=== PATIENT | male | born 2000 | race Caucasian/White ===

== ENCOUNTER 2024-06-05 03:42 | Observation (INO) ==
[2024-06-05 04:21] LABS: Appearance Urine Clear (Clear); Bilirubin Urine Negative (Negative); Blood Urine Negative (Negative); Color Urine Yellow; Glucose Urine UA Negative (Negative); Ketones Urine Negative (Negative); Leukocyte Esterase Urine Negative (Negative); Nitrite Urine Negative (Negative); Protein Urine Negative (Negative); Specific Gravity Urine 1.022 (1.000-1.030); Urobilinogen Urine Negative (Negative); pH Urine 7.5 (4.5-7.5)
[2024-06-05 04:22] LABS: Basophils # (auto) 0.08 K/uL (0.00-0.20); Basophils % (auto) 0.6 %; Eosinophils # (auto) 0.02 K/uL (0.00-0.50); Eosinophils % (auto) 0.1 %; Hematocrit (blood only) 48.5 % (42.0-52.0); Hemoglobin 17.2 g/dl (14.0-18.0); Immature Granulocytes # (auto) 0.14 K/uL (0.01-0.20); Lymphocytes # (auto) 2.57 K/uL (1.20-3.40); Lymphocytes % (auto) 18.6 %; Mean Corpuscular Hemoglobin 30.1 pg (25.0-34.0); Mean Corpuscular Hgb Conc 35.5 g/dL (32.0-36.0); Mean Corpuscular Volume 84.9 fL (80.0-100.0); Mean Platelet Volume 9.3 fL (9.4-12.4); Monocytes # (auto) 1.38 K/uL (0.11-0.59); Neutrophils # (auto) 9.61 K/uL (1.40-6.50); Neutrophils % (auto) 69.7 %; Platelet Count 282 K/uL (130-400); RDW Coefficient of Variation 12.1 % (11.5-14.5); RDW Standard Deviation 36.6 fL (36.4-46.3); Red Blood Count 5.71 M/uL (4.70-6.10)
[2024-06-05 04:39] LABS: Albumin Globulin Ratio 1.9 (0.9-2); Albumin Level 4.9 gm/dl (3.4-5.0); BUN Creatinine Ratio 16.9 (10-20); Bilirubin,Total 0.5 mg/dl (0.2-1.0); Calcium 9.7 mg/dl (8.6-10.3); Creatinine Clr Calc Pharmacy 155.2 ml/min; Globulin 2.6 gm/dl (2.5-4.0); Potassium 3.8 mmol/L (3.5-5.1); Total Protein 7.5 gm/dl (6.0-8.3)
[2024-06-05 04:47] LABS: Acetaminophen < 3 ug/ml (10-30); Salicylate < 3.0 mg/dl (3.0-30)
[2024-06-05 04:48] LABS: Amphetamines+Metham, Urine Neg (Neg); Barbiturates, Urine Neg (Neg); Benzodiazepine, Urine Neg (Neg); Cocaine, Urine Neg (Neg); Fentanyl, Urine Neg (Neg); MDMA (Ecstacy), Urine Neg (Neg); Marijuana, Urine Pos (Neg); Methadone, Urine Neg (Neg); Opiate, Urine Neg (Neg); Phencyclidine, Urine Neg (Neg)
[2024-06-05 04:54] LABS: Thyroid Stimulating Hormone 2.059 uIu/ml (0.300-4.500)
--- NOTE | 2024-06-05 05:18 | Emergency Department Note ---
Impression & Plan Acute psychosis, COVID Admit to the hospitalist ED Provider Note NAME: HARPER CHOUDHURY AGE: 24 SEX: Male INFORMANT: [facility] police and the patient ED PROVIDER(S): Natividad Cohn DO CHIEF COMPLAINT: Delusional PLAN: Disposition: Admit to the hospitalist with psychiatric consult MEDICAL DECISION MAKING: This is a 24-year-old male patient with a history of schizophrenia who presents to the emergency department with [facility] police after being found at the HUB in a delusional state. Patient explains that someone stole his Risperdone and therefore has not been taking it. Police explain that they found him making ropes out of toilet paper and spraying toilet bowl venetian blind cleaner about the HUB. Patient explained to me that he was preparing a chemical reaction to make the strongest plastic in the world to build a tree that would take him to [place]. According to police, the patient had showed up yesterday at their department asking if they explore his car because it had been "bugged"while he was at home in [place]. He describes driving at speeds greater than 120 miles an hour to get back to [facility] so they could check the car. Police petitioned a 302. Laboratory studies reveal a mild leukocytosis with a white count of 13.8. H&H were stable. Glucose level was 110. Urinalysis was negative. COVID testing was positive. Urine drug screen was positive for marijuana. Alcohol, aspirin and Tylenol testing were all negative. It seems that the patient is making unsafe decisions not based on reality. I do not think he is able to safely care for himself. I will sign off on the involuntary commitment. Because the patient is COVID-positive, he will require medical admission at this time with psychiatric consultation. Care/management discussed with: [facility] police and ED psychiatric case work aide Triage Nursing notes: reviewed and agree with them. Vital Signs: reviewed and remarkable for tachycardia Additional History obtained from: [facility] police Chronic Medical/Social Conditions affecting care: Schizophrenia Differential Diagnosis: Medication noncompliance, mood disorder, thought disorder, drug abuse HPI: 24 year old Male arrives for evaluation of delusional thoughts. Patient was found at the HUB exhibiting bizarre behavior as described in the MDM. PAST MEDICAL HISTORY: See Below, SOCIAL HISTORY: Student at [facility] [employer], HOME MEDICATIONS: See list ALLERGIES: See list VITALS: See Below PHYSICAL EXAMINATION: HEENT: Head - normocephalic and atraumatic. 2 vertical black dots on the forehead. Pupils are equal, round, and reactive to light. Extraocular eye muscles are intact, and sclera are anicteric. Nose - moist nasal mucosa without discharge. Mouth - moist buccal mucosa. Oropharynx is nonerythematous and there is no tonsillar exudate or edema noted. Neck: Supple; no cervical lymphadenopathy Heart: Regular rate and rhythm. There is a normal S1 and S2 with no murmurs, clicks, or gallops appreciated. Lungs: Clear to auscultation bilaterally with no wheezes, rales, or rhonchi. Abdomen: Soft, completely nontender, nondistended, with good bowel sounds. There are no palpable pulsatile masses or hepatosplenomegaly. There is no guarding, rigidity, or rebound noted. Extremities: No evidence of cyanosis, clubbing, or edema. There are easily palpable peripheral pulses. Skin: warm and dry with good turgor and no rashes. Psych: Patient is delusional on my evaluation. He appears to be having conversations at times with internal stimuli. He seems paranoid Emergency department course: The patient was evaluated in room A-3. A complete history and physical was performed. Laboratory studies were drawn as above. I reviewed the 302 petition and signed off on the commitment. Patient described feeling anxious and requested something to help him relax. He was given a dose of Ativan and a nicotine patch. The patient is COVID-positive. I discussed the case with the hospitalist and they will evaluate for further inpatient care. Past Med/Surg History Problem List (Updated 06/05/24 @ 10:13 by Natividad Cohn DO) COVID (Acute) Acute psychosis (Acute) COVID-19 Schizophrenia Paranoid delusion (Acute) Penile skin bridge Medical History History of COVID-19 03/2022 (home test)- mild symptoms > resolved History of asthma Childhood, no current inhaler Surgical History Hx of tonsillectomy Hx of wisdom tooth extraction Family History Father Hypertension Grandfather (Maternal) Hypertension Denies family history of Ovarian cancer Prostate cancer Myocardial infarction Breast cancer Colorectal cancer Social History Smoking Status: Never smoker Tobacco Type: E-cigarettes / Vaping Second Hand Exposure: Yes; Do You Dip or Chew Tobacco: No (Hx nicotine pouches- advised); Hx Alcohol Use: Yes (occasional use) Hx Substance Use: Yes Last Used Substance Other:: 06/2023 Preferred Language: [place] Communication Ability: Effective Visual Impairment: Limited Hearing Ability: Normal Chemical Technician Required: No Beliefs That Will Affect Care: None marital status: Single Current Living Situation: Other Current Living Situation Comment: 2 roommates-oneyda current occupational status: student How many Children do You have: 0 Feels Safe at Home: Yes Childhood Exposure to Second-Hand Smoke: Yes caffeine: No Dental Care, Regularly: Yes Physical Activity Frequency: 1-2 Times per Week Seatbelt Use: always Sunscreen Use: No Gender Identity: Male Assistive Devices: Glasses Allergies Allergies Allergy/AdvReac Type Severity Reaction Status Date / Time codeine Allergy Intermediate Facial Verified 11/30/23 14:45 swelling with redness Home Meds Home Medications Medication Instructions Recorded Confirmed cholecalciferol (vitamin D3) 50 100 mcg PO DAILY 10/21/23 06/05/24 mcg (2,000 unit) capsule (Vitamin D3) multivitamin 1 tab PO DAILY 10/21/23 06/05/24 omega-3 fatty acids 1 cap PO DAILY 10/21/23 06/05/24 risperidone 3 mg tablet 3 mg PO BID 06/05/24 06/05/24 Results & Data (ED) Vital Signs Vital Signs - 24 hr 06/05/24 03:45 06/05/24 06:25 Temperature 37.1 C Temperature Source Temporal Artery Scan Pulse Rate 110 H Pulse Rate [Finger] 79 Respiratory Rate 17 18 Respiratory Effort / Characteristics Non-Labored Spontaneous Respiratory Depth Normal Normal Respiratory Pattern Regular Blood Pressure 142/96 H Blood Pressure [Left Arm] 110/71 Blood Pressure Mean 111 Blood Pressure Mean [Left Arm] 84 Pulse Oximetry 95 99 Oxygen Delivery Method Room Air Room Air Sepsis Recent Fever Within 48 Hours No Sepsis New/Unexplained Change in Mental Status No Sepsis Action Taken by Nursing No Action Required Laboratory Data 06/05/24 04:00 06/05/24 04:00 Lab Results 06/05/24 06/05/24 06/05/24 Range/Units 03:56 03:59 04:00 WBC 13.80 H (4.8-10.8) K/ul RBC 5.71 (4.70-6.10) M/uL Hgb 17.2 (14.0-18.0) g/dl Hct 48.5 (42.0-52.0) % MCV 84.9 (80.0-100.0) fL MCH 30.1 (25.0-34.0) pg MCHC 35.5 (32.0-36.0) g/dL RDW Std Deviation 36.6 (36.4-46.3) fL RDW Coeff of Cris 12.1 (11.5-14.5) % Plt Count 282 (130-400) K/uL MPV 9.3 L (9.4-12.4) fL Immature Gran % (Auto) 1.0 % Neut % (Auto) 69.7 % Lymph % (Auto) 18.6 % [place] % (Auto) 10.0 % Eos % (Auto) 0.1 % Baso % (Auto) 0.6 % Neut # (Auto) 9.61 H (1.40-6.50) K/uL Lymph # (Auto) 2.57 (1.20-3.40) K/uL [place] # (Auto) 1.38 H (0.11-0.59) K/uL Eos # (Auto) 0.02 (0.00-0.50) K/uL Baso # (Auto) 0.08 (0.00-0.20) K/uL Immature Gran # (Auto) 0.14 (0.01-0.20) K/uL Sodium 141 (136-145) mmol/L Potassium 3.8 (3.5-5.1) mmol/L Chloride 106 (98-107) mmol/L Carbon Dioxide 24 (21-32) mmol/L Anion Gap 11 (3-11) BUN 14 (6-23) mg/dl Creatinine 0.83 (0.6-1.4) mg/dl Est Cr Clr Drug Dosing 155.2 ml/min eGFR 126.12 BUN/Creatinine Ratio 16.9 (10-20) Glucose 110 H (70-99(Fasting)) mg/dl Calcium 9.7 (8.6-10.3) mg/dl Total Bilirubin 0.5 (0.2-1.0) mg/dl AST 38 (13-39) U/L ALT 52 (7-52) U/L Alkaline Phosphatase 51 (34-104) U/L Total Protein 7.5 (6.0-8.3) gm/dl Albumin 4.9 (3.4-5.0) gm/dl Globulin 2.6 (2.5-4.0) gm/dl Albumin/Globulin Ratio 1.9 (0.9-2) TSH 2.059 (0.300-4.500) uIu/ml Urine Color Yellow Urine Appearance Clear (Clear) Urine pH 7.5 (4.5-7.5) Ur Specific [place] 1.022 (1.000-1.030) Urine Protein Negative (Negative) Urine Glucose (UA) Negative (Negative) Urine Ketones Negative (Negative) Urine Blood Negative (Negative) Urine Nitrite Negative (Negative) Urine Bilirubin Negative (Negative) Urine Urobilinogen Negative (Negative) Ur Leukocyte Esterase Negative (Negative) Salicylates < 3.0 L (3.0-30) mg/dl Urine Opiates Screen Neg (Neg) Ur Methadone, Qual Neg (Neg) Urine Fentanyl Screen Neg (Neg) Acetaminophen < 3 L (10-30) ug/ml Urine Barbiturates Neg (Neg) Ur Phencyclidine (PCP) Neg (Neg) U Amphetamin/Meth Scrn Neg (Neg) MDMA (Ecstasy) Screen Neg (Neg) U Benzodiazepines Scrn Neg (Neg) Ur Cocaine Metabolite Neg (Neg) U Marijuana (THC) Screen Pos H (Neg) Ethyl Alcohol mg/dL < 10.0 (<10.0) mg/dl SARS-CoV-2, RNA, NAAT POSITIVE A (NEGATIVE) Administered Medications Nicotine (Nicotine 14 Mg/24 Hr Patch) 1 patch TD QAM SHARIFA Stop: 07/05/24 08:59 Last Admin: 06/05/24 08:09 Dose: 1 patch Documented By: AVM Discontinued Medications Lorazepam (Lorazepam 1 Mg Tab) 2 mg PO NOW STA Stop: 06/05/24 05:23 Last Admin: 06/05/24 05:25 Dose: 2 mg Documented By: [email or web address] Discharge Plan Visit Data Chief Complaint: Mental Health Evaluation Stated Complaint: 302 PAPERWORK ED Provider: Natividad Cohn Discharge Problem: Acute psychosis, COVID Patient Disposition: Admitted As Inpatient Discharge Instructions Interventions: ED Discharge Assessment Last Done: 06/05/24 09:10
[2024-06-05] MEDS: LORazepam 1 MG TAB PO STA (05:25)
--- NOTE | 2024-06-05 07:33 | History & Physical Report ---
Date of Service June 05, 2024 Assessment & Plan (1) Paranoid delusion: Plan: With acute psychosis. Psychiatry will be consulted Medical management deferred to psychiatry-will hold home Ridperdal for now Ordered to be on a one-to-one and is not allowed to leave the facility. He is on a 302 warrant (2) Schizophrenia: Plan: Medication management as per psychiatry (3) COVID-19: Plan: He is with very mild symptoms of chills, cough, dry throat, mild nausea; vital signs are normal, unclear when symptoms started-sometime in the last week since he was discharged from the [facility]. Low risk for severe disease-No treatment needed Will monitor Keep on isolation as per hospital policy add on ibuprofen as needed for pain or headache, fever. Pt actually requested "salicylate aspirin" but I advised ibuprofen prn (4) History of asthma: Plan: History of childhood asthma, no current symptoms, no wheezing, no hypoxemia Monitor with having active COVID-19 No need for CXR Plan DVT prophylaxis-Lovenox SQ given ongoing COVID-19 Disposition-admit to medical/surgical unit on a one-to-one, COVID isolation room History of Present Illness Chief Complaint: Psychosis Primary Care Provider: Willam Khan DO This patient is a 24-year-old male with history of paranoid schizophrenia, nicotine dependence, and marijuana use disorder who presents to the ER in the custody of the police with psychosis. He is a student at [employer] and drove home to his parents' house yesterday, thought they bugged his car, drove it at excessive speeds back to [place] to the police station where he asked him to inspect his car for listening devices. He then went to the [employer] building on campus and stole all of the toilet paper from the environmental services employees and was creating a rope and then was found splashing toilet bowl cleaner industrial all over the floor. He thought he was going to "climb a tree to [place]," apparently. He also recently superglued charcoal to his forehead because he wanted to feel burning in his eyes as if he were in a gas chamber. He does focus a lot on water and food being tainted with fungus and chemicals, yet laughs when I remind him that smoking is very bad for his health. He was just discharged from the [facility] about a week ago and says he was placed on Risperdal, but wants to talk about reducing the dose to half. He denies SI/HI, but does report feeling depressed and says "I feel the depression in my body." In the ER, he was found to be COVID-19 positive, with fairly normal vital signs. He had a mild leukocytosis of 13. He was not hypoxemic and reports he had some chills at home and a mild cough, some mild nausea but no vomiting, but otherwise feels fine. He requested Ativan and nicotine in the ER which was given to him. He was placed on a 302 warrant by the ER physician and will be admitted to the medical service due to being COVID-19 positive. I discussed his care with the psychiatric nurse liaison prior to admission. Allergies Allergy/AdvReac Type Severity Reaction Status Date / Time codeine Allergy Intermediate Facial Verified 11/30/23 14:45 swelling with redness Home Medications Medication Instructions Recorded Confirmed Type cholecalciferol (vitamin D3) 50 100 mcg PO DAILY 10/21/23 06/05/24 History mcg (2,000 unit) capsule (Vitamin D3) multivitamin 1 tab PO DAILY 10/21/23 06/05/24 History omega-3 fatty acids 1 cap PO DAILY 10/21/23 06/05/24 History risperidone 3 mg tablet 3 mg PO BID 06/05/24 06/05/24 History Past Med/Surg History Problem List (Updated 06/05/24 @ 10:13 by Natividad Cohn DO) COVID (Acute) Acute psychosis (Acute) COVID-19 Schizophrenia Paranoid delusion (Acute) Penile skin bridge Medical History History of COVID-19 03/2022 (home test)- mild symptoms > resolved History of asthma Childhood, no current inhaler Surgical History Hx of tonsillectomy Hx of wisdom tooth extraction Family History Father Hypertension Grandfather (Maternal) Hypertension Denies family history of Ovarian cancer Prostate cancer Myocardial infarction Breast cancer Colorectal cancer Social History Smoking Status: Current every day smoker Tobacco Type: E-cigarettes / Vaping Second Hand Exposure: Yes; Do You Dip or Chew Tobacco: No (Hx nicotine pouches- advised); Hx Alcohol Use: Yes Hx Substance Use: No (denied) Preferred Language: [place] Citizen Communication Ability: Effective Visual Impairment: Limited Hearing Ability: Normal Testing Manager Required: No Beliefs That Will Affect Care: None marital status: Single Current Living Situation: Other Current Living Situation Comment: 2 roommates-oneyda current occupational status: student How many Children do You have: 0 Feels Safe at Home: Yes Childhood Exposure to Second-Hand Smoke: Yes caffeine: No Dental Care, Regularly: Yes Physical Activity Frequency: 1-2 Times per Week Seatbelt Use: always Sunscreen Use: No Gender Identity: Male Assistive Devices: Glasses Review of Systems Review of Systems: All systems reviewed & are unremarkable except as noted in HPI & below Physical Exam Constitutional: WD/WN, vitals as above Eyes: PERRL, conjunctivae normal, anicteric sclerae ENMT: external ear and nose normal, oropharynx normal Respiratory: normal respiratory effort, lungs clear to auscultation Cardiovascular: RRR, no murmur, no edema Gastrointestinal (Abdomen): normal bowel sounds, soft, nontender, no hepatosplenomegaly Musculoskeletal: no cyanosis or clubbing, extremities motor strength 5/5 Neurologic: PERRL, EOMI, accommodation nl, no face palsy, no dysarthria moves all extremities and awake; no focal motor deficits Psychiatric: Orientation: alert, oriented to person, oriented to place and cooperative; not guarded Affect: + depressed affect Mood: + depressed mood Thought Process: + looseness of associations; + thought process not goal directed Thought Content: + preoccupation and + delusions Suicidal Thoughts: denies suicidal thoughts Homicidal Thoughts: denies homicidal thoughts Estimated Intelligence: + above average estimated intelligence Results & Data Results & Data Vital Signs (Past 12 Hours) Vital Signs Temp Pulse Pulse Resp BP BP Pulse Ox 06/05/24 06:25 79 18 110/71 99 06/05/24 03:45 37.1 C 110 H 17 142/96 H 95 O2 Del Method 06/05/24 06:25 Room Air 06/05/24 03:45 Room Air Laboratory Results CBC, CMP, TSH, urinalysis, ASA, APAP, urine drug screen, alcohol level, and COVID-19 test reviewed Code Status & VTE Plan Code Status Full code VTE Prophylaxis Plan VTE Prophylaxis will be ordered: Yes PG Care Time/CCT Total # of Minutes Spent Total Time Spent with Patient: Total time spent is greater than 50% in coordination of care (as documented) at patient's floor/unit and/or counseling patient: Coding Level of Care Code 04363 INT INP/OBS CARE MIN Diagnoses Paranoid delusion F22 Schizophrenia F20.9 COVID-19 U07.1 History of asthma Z87.09
[2024-06-05] MEDS: NICOTINE 14 MG/24 HR PATCH TD SCH (08:09)
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
[2024-06-05] MEDS ORDERED: ACETAMINOPHEN 325 MG TAB PO PRN (09:56)
[2024-06-05] MEDS ORDERED: ONDANSETRON INJ 2 MG/ML 2 ML VIAL IV PRN (09:56)
[2024-06-05] MEDS ORDERED: MAGNESIUM HYDROXIDE SUSP 30 ML UDC PO PRN (09:56)
[2024-06-05] MEDS ORDERED: POLYETHYLENE (MIRALAX) 17 GM PACK PO PRN (09:56)
[2024-06-05] MEDS: ENOXAPARIN INJ 40 MG/0.4 ML SYR SQ SCH (10:03)
[2024-06-05] MEDS: NON-FORMULARY MEDICATION (Cholecalciferol (Vitamin D3) [Vitamin D3] 50 mcg (2,000 unit) Ca PO SCH (10:03)
[2024-06-05] MEDS: NON-FORMULARY MEDICATION (Multivitamin Tablet) PO SCH (10:03)
[2024-06-05] MEDS ORDERED: IBUPROFEN 600 MG TAB PO PRN (11:27)
[2024-06-05] MEDS ORDERED: OLANZapine ZYDIS 5 MG ORALLY DIS. TAB PO PRN (13:18)
[2024-06-05] MEDS ORDERED: LORazepam 1 MG TAB PO PRN (13:18)
[2024-06-05] MEDS ORDERED: OLANZapine 10 MG/2.1 ML SDV IM PRN (13:18)
[2024-06-05] MEDS: LORazepam 1 MG TAB PO SCH (21:06)
[2024-06-05] MEDS: ARIPiprazole 10 MG TAB PO SCH (21:07)
[2024-06-06] MEDS: NICOTINE POLACRILEX 2 MG GUM MT PRN (03:21)
[2024-06-06] MEDS: CHOLECALCIFEROL 25 MCG (1000 UNITS) TAB PO SCH (08:26)
[2024-06-06] MEDS: MULTIVITAMIN TAB PO SCH (08:26)
[2024-06-06] MEDS: NICOTINE 7 MG/24 HR TDSY TD SCH (08:26)
--- NOTE | 2024-06-06 11:24 | Hospitalist Progress Note ---
Date of Service June 06, 2024 Assessment & Plan (1) Severe manic bipolar 1 disorder with psychotic behavior: Plan: Previous diagnosis of paranoid schizophrenia is now thought to be bipolar disorder type I with psychotic behavior as per psychiatry Presented here with acute psychosis Appreciate psychiatry consultation-started on Abilify-titrating up as necessary Olanzapine p.o./IM as needed Psychiatry managing/coordinating his length of stay-on a 302 warrant and not allowed to leave the facility. A hearing for 303 is scheduled for Friday 06/08 (2) Paranoid delusion: Plan: With acute psychosis. Psychiatry consult appreciated with management as above- improving on Abilify Ordered to be on a one-to-one and is not allowed to leave the facility. He is on a 302 warrant (3) COVID-19: Plan: He is with very mild symptoms of chills, cough, dry throat, mild nausea; vital signs are normal, unclear when symptoms started-sometime in the last week since he was discharged from the [facility]. Low risk for severe disease-No treatment needed Will monitor-has mild cough Keep on isolation as per hospital policy Continue ibuprofen as needed for pain or headache, fever. Pt actually requested "salicylate aspirin" but I advised ibuprofen prn (4) History of asthma: Plan: History of childhood asthma, no current symptoms, no wheezing, no hypoxemia Monitor with having active COVID-19 No need for CXR Plan DVT prophylaxis-Lovenox SQ given ongoing COVID-19 Disposition-continued stay medical/surgical unit on a one-to-one, COVID isolation room until either stable for discharge to home as per psychiatry or when okay with hospital infection control to be removed from COVID isolation- typically 7-day stay. Admission and Anticipated Discharge Date Admission Date: June 05, 2024 Subjective Patient was on the phone with behavioral health when I went in to see him. As per nursing, he is much improved today and his thoughts are more clear. He has a mild cough and no other concerns. Physical Exam Constitutional: WD/WN, vitals as above Respiratory: normal respiratory effort; no cough Neurologic: Normal gait Results & Data Results & Data Vital Signs (Past 12 Hours) Vital Signs Pulse Resp BP Pulse Ox O2 Del Method 06/06/24 08:35 Room Air 06/06/24 06:57 80 18 123/73 97 Room Air PG Care Time/CCT Total # of Minutes Spent Total Time Spent with Patient: Total time spent is greater than 50% in coordination of care (as documented) at patient's floor/unit and/or counseling patient: Coding Level of Care Code 90066 SUB INP/OBS CARE 08/25MIN Diagnoses Severe manic bipolar 1 disorder with psychotic behavior F31.2 Paranoid delusion F22 COVID-19 U07.1 History of asthma Z87.09
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
[2024-06-06] MEDS: ARIPiprazole 15 MG TAB PO SCH (20:06)
[2024-06-07] MEDS: ALUMINUM/MAGNESIUM SUSP 30 ML UDC PO PRN (11:12)
[2024-06-07 12:22] LABS: Marijuana Quant, GCMS Urine 263 ng/mL (<5)
--- NOTE | 2024-06-07 13:59 | Hospitalist Progress Note ---
Date of Service June 07, 2024 Assessment & Plan (1) Severe manic bipolar 1 disorder with psychotic behavior: Plan: Appreciate psychiatry consultation-started on Abilify-titrating up as necessary Olanzapine p.o./IM as needed Psychiatry managing/coordinating his length of stay-on a 302 warrant and not allowed to leave the facility. A hearing for 303 is scheduled for Friday 06/08 (2) Paranoid delusion: Plan: Psychiatry consult appreciated with management as above-improving on Abilify Ordered to be on a one-to-one and is not allowed to leave the facility. He is on a 302 warrant (3) COVID-19: Plan: Keep on isolation as per hospital policy Continue ibuprofen as needed for pain or headache, fever. (4) History of asthma: Plan: no current symptoms, no wheezing, no hypoxemia Monitor with having active COVID-19 Plan DVT prophylaxis-Lovenox SQ given ongoing COVID-19 Disposition-continued stay medical/surgical unit on a one-to-one, COVID isolation room until either stable for discharge to home as per psychiatry or when okay with hospital infection control to be removed from COVID isolation- typically 7-day stay. Admission and Anticipated Discharge Date Admission Date: June 05, 2024 Subjective Pt appears calm and in a pleasant mood. He states he slept well and there were no issues overnight. Review of Systems Review of Systems: CONST: Negative for fever, body aches and chills. HENT: Negative for neck pain/stiffness, headache, congestion, sore throat, swelling. EYES: Negative for discharge/pain or vision changes. RESP: Negative for cough/hemoptysis and shortness of breath. CV: Negative chest pain, difficulty breathing, palpitations. ABD: Negative pain, nausea, vomiting. : Negative increase frequency, dysuria, blood in urine or stool. MUSC: Negative for muscle aches, edema. SKIN: Negative rash, lesions/sores. NEURO: Negative headache, dizziness, weakness. Physical Exam Physical Exam: GENERAL APPEARANCE NAD, activity normal for age, well developed/ well nourished, no cyanosis, pallor, or diaphoresis. EYES lids/conjunctiva normal. EARS/NOSE/THROAT Mucous membranes moist, nares normal, lips/teeth normal uvula midline without oral pharyngeal erythema, exudate or swelling TMs normal bilaterally. No lymphangitis/lymphedema. HEAD/NECK normocephalic atraumatic, no facial trauma, neck is supple. RESPIRATORY respiratory effort normal, speaks in full sentences, no tripod position, no accessory muscle use. Lungs clear to auscultation without rhonchi, wheezes, rales CARDIAC Regular rate and rhythm, no edema. ABDOMINAL Soft, ND/NT. No evidence of fluid wave. No pulsatile masses on exam, rebound tenderness, Braden sign or pain over Mcburney's point. MUSCLES/EXTREMITIES No abnormal range of motion, no swelling. SKIN Warm, pink and dry. No rashes, dermatoses, petechiae or lesions. NEUROLOGICAL Speech is clear and appropriate. Normal level of consciousness. G ait and coordination are normal. 5/5 strength in all extremities. PSYCH Normal mood and affect. Judgement/competence is appropriate Results & Data Results & Data Vital Signs (Past 12 Hours) Vital Signs Temp Pulse Resp BP Pulse Ox O2 Del Method 06/07/24 07:09 37.1 C 73 18 118/80 98 Room Air PG Care Time/CCT Total # of Minutes Spent Total Time Spent with Patient: Total time spent is greater than 50% in coordination of care (as documented) at patient's floor/unit and/or counseling patient: Coding Level of Care Code 12270 SUB INP/OBS CARE 2/35MIN Diagnoses Severe manic bipolar 1 disorder with psychotic behavior F31.2 Paranoid delusion F22 COVID-19 U07.1 History of asthma Z87.09
--- NOTE | 2024-06-07 16:20 | Psychiatric Progress Note ---
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 Patient is COVID-positive. Psychiatry consulted for evaluation and management. Presentation concerning for Bipolar 1 Ruthie with psychosis vs Schizoaffective disorder, bipolar type vs substance induced psychosis, cannabis abuse. Presenting symptoms include decreased need for sleep, grandiosity, elevated mood, inc goal directed activity, high energy, delusions of grandeur, persecutory delusions, bizarre beliefs, paranoia. Appears to be his second episode, first in 2022. Likely triggered by traumas (GF in train accident, maternal grandmother). Possible family h/o Bipolar disorder in maternal grandfather. A: Today presents more stable mood and slightly improved insight. Continues to have decreased need for sleep, grandiosity, and poor insight into his recent activities and risk of harm to himself and others. Presenting disorientation, inappropriate laughter, and tangentiality on mental status. Would benefit from continued involuntary hospitalization for stabilization. Overall, I spent a total of 40 minutes with this case including review of chart records, nursing report, review of lab work, direct evaluation of the patient at bedside, counseling the patient, discussion of the patient with the hospitalist provider, discussion with the psychiatric liaison during clinical rounds, orders and documentation in the electronic health record. (1) Unspecified mood [affective] disorder: (2) Acute psychosis: (3) Ruthie: (4) Paranoid delusion: (5) Persecutory delusion: (6) Cannabis abuse: (7) of family member: (8) COVID-19: (9) History of asthma: Plan - Currently on 302 involuntary commitment Filed for 303 commitment Continue bedside sitter given involuntary status Continue elopement precautions - No personal phone/sharps in room 06/07/2024: Continue aripiprazole to 15 mg at bedtime. Continue lorazepam 2 mg at bedtime. Labs: Vit D, Vit B12, HgbA1C, Fasting lipids 06/06/2024: Increase aripiprazole to 15 mg at bedtime. Continue lorazepam 2 mg at bedtime. 06/05/2024: -Abilify 10mg HS -Lorazepam 2mg HS -Lorazepam 1mg Q6H PRN for anxiety -Olanzapine 5mg ODT/IM Q6H PRN for agitation Interval History Identifying Information Marquis is a 24-year-old male, domiciled with roommates, [employer] [facility] [employer] [facility] student history of past psychiatric hospitalization who presents with acute ruthie and psychosis. Patient is COVID-positive. Psychiatry consulted for evaluation and management. Chief Complaint "Psychotic when sick" Subjective Subjective Patient was seen & assessed and interval progress reviewed with treatment team nursing and social work Patient reports sleeping well. He said he woke up with something stuck to his back. Says that the stickers now on his door. Looks to be a random sticker possibly from old food container label. He says that it was a nicotine patch. Reports fair energy. Denies any muscle rigidity or paralysis. He denies feelings of restlessness. Reports plans to go home and get back to school work. Reports feeling safe. When I reflect on his initial driving that was erratic he reports that people were chasing after him. And was a target at the time. Denies current racing thoughts. Tangential at times and then was looking out the window at the clouds and was smiling to himself. Says that the clouds look cool. Near the windows he has multiple wet towels that are laid out. He says that the wet towels increase humidity in the air. He again looks out the window and says that he is "playing with light" and presents inappropriate laughter. He denies SI and HI. Physical Exam Mental Examination Appearance: Disheveled Eye Contact: Maintains Eye Contact Motor Behavior: Unremarkable Speech: Tangential and Circumstantial Mood: Happy Affect: Apprehensive and Calm Thought Process: Circumstantial and Disorganized Thought Content: Disoriented, Obsessional Thoughts and Preoccupation Hallucinations: None Insight: Poor Judgement: Poor Vital Signs (Past 24 Hours) Last Vital Signs Temp 36.8 C 06/07/24 15:00 Pulse 83 06/07/24 15:00 Resp 18 06/07/24 15:00 BP 114/75 06/07/24 15:00 Pulse Ox 98 06/07/24 15:00 O2 Del Method Room Air 06/07/24 15:00 Results & Data (U) Laboratory Results Laboratory Results - last 24 hr 06/05/24 03:56 U Marijuana THC Carboxy 263 H Drug Screen Comment SEE NOTE Current Inpatient Medications Current Inpatient Medications: Current Inpatient Medications Acetaminophen (Acetaminophen 325 Mg Tab) 650 mg PO Q4H PRN PRN Reason: pain/fever Stop: 07/05/24 09:55 Al Hydrox/Mg Hydrox/Simethicone (Aluminum/Magnesium Susp 30 Ml Udc) 30 ml PO Q6H PRN PRN Reason: Dyspepsia Stop: 07/05/24 09:55 Last Admin: 06/07/24 11:12 Dose: 30 ml Aripiprazole (Aripiprazole 15 Mg Tab) 15 mg PO HS [facility] Stop: 07/06/24 20:59 Last Admin: 06/06/24 20:06 Dose: 15 mg Enoxaparin Sodium (Enoxaparin Inj 40 Mg/0.4 Ml Syr) 40 mg SQ Q24H [facility] Stop: 07/05/24 09:55 Last Admin: 06/07/24 07:42 Dose: Not Given Ibuprofen (Ibuprofen 600 Mg Tab) 600 mg PO Q8H PRN PRN Reason: pain or fever Stop: 07/05/24 11:29 Lorazepam (Lorazepam 1 Mg Tab) 2 mg PO HS [facility] Stop: 07/05/24 20:59 Last Admin: 06/06/24 20:01 Dose: 2 mg Lorazepam (Lorazepam 1 Mg Tab) 1 mg PO Q6H PRN PRN Reason: Anxiety Stop: 07/05/24 13:17 Magnesium Hydroxide (Magnesium Hydroxide Susp 30 Ml Udc) 30 ml PO Q6H PRN PRN Reason: Constipation Stop: 07/05/24 09:55 Miscellaneous (Remove Nicoderm Patch) 1 each N/A DAILY@0859 [facility] Stop: 07/06/24 08:58 Last Admin: 06/07/24 07:40 Dose: 1 each Multivitamins (Multivitamin Tab) 1 tab PO DAILY [facility] Stop: 07/05/24 10:14 Last Admin: 06/07/24 07:39 Dose: 1 tab Nicotine (Nicotine 7 Mg/24 Hr Tdsy) 1 patch TD QAM [facility] Stop: 07/06/24 08:59 Last Admin: 06/07/24 07:41 Dose: 1 patch Nicotine Polacrilex (Nicotine Polacrilex 2 Mg Gum) 1 piece MT Q2H PRN PRN Reason: Nicotine cravings Stop: 07/05/24 21:16 Last Admin: 06/06/24 20:01 Dose: 1 piece Olanzapine (Olanzapine Zydis 5 Mg Orally Dis. Tab) 5 mg PO Q6H PRN PRN Reason: agitation Stop: 07/05/24 13:29 Olanzapine (Olanzapine 10 Mg/2.1 Ml Sdv) 5 mg IM Q6H PRN PRN Reason: agitation Stop: 07/05/24 13:29 Ondansetron HCl (Ondansetron Inj 2 Mg/Ml 2 Ml Vial) 4 mg IV Q6H PRN PRN Reason: Nausea Stop: 07/05/24 09:55 Polyethylene Glycol (Polyethylene (Miralax) 17 Gm Pack) 17 gm PO DAILY PRN PRN Reason: Constipation Stop: 07/05/24 09:55 Vitamin D (Cholecalciferol 25 Mcg (1000 Units) Tab) 100 mcg PO DAILY [facility] Stop: 07/05/24 10:14 Last Admin: 06/07/24 07:38 Dose: 100 mcg
[2024-06-07] MEDS ORDERED: NICOTINE POLACRILEX 2 MG GUM MT PRN (16:27)
[2024-06-08 08:58] LABS: Estimated Average Glucose 94 mg/dl; Hemoglobin A1C 4.9 % (4.5-5.6)
--- NOTE | 2024-06-08 10:16 | Hospitalist Progress Note ---
Date of Service June 08, 2024 Assessment & Plan (1) Severe manic bipolar 1 disorder with psychotic behavior: Plan: Appreciate psychiatry consultation-started on Abilify-titrating up as necessary Olanzapine p.o./IM as needed Psychiatry managing/coordinating his length of stay-on a 302 warrant and not allowed to leave the facility. A hearing for 303 is scheduled for Friday 06/08 (2) Paranoid delusion: Plan: Psychiatry consult appreciated with management as above-improving on Abilify Ordered to be on a one-to-one and is not allowed to leave the facility. He is on a 302 warrant (3) COVID-19: Plan: Keep on isolation as per hospital policy Continue ibuprofen as needed for pain or headache, fever. (4) History of asthma: Plan: no current symptoms, no wheezing, no hypoxemia Monitor with having active COVID-19 Plan DVT prophylaxis-Lovenox SQ given ongoing COVID-19 Disposition-continued stay medical/surgical unit on a one-to-one, COVID isolation room until either stable for discharge to home as per psychiatry or when okay with hospital infection control to be removed from COVID isolation- typically 7-day stay. Admission and Anticipated Discharge Date Admission Date: June 05, 2024 Subjective Pt looks to be in a calm and in a pleasant mood. He states he slept well and there were no issues overnight. Review of Systems Review of Systems: CONST: Negative for fever, body aches and chills. HENT: Negative for neck pain/stiffness, headache, congestion, sore throat, swelling. EYES: Negative for discharge/pain or vision changes. RESP: Negative for cough/hemoptysis and shortness of breath. CV: Negative chest pain, difficulty breathing, palpitations. ABD: Negative pain, nausea, vomiting. : Negative increase frequency, dysuria, blood in urine or stool. MUSC: Negative for muscle aches, edema. SKIN: Negative rash, lesions/sores. NEURO: Negative headache, dizziness, weakness. Physical Exam Physical Exam: GENERAL APPEARANCE NAD, activity normal for age, well developed/ well nourished, no cyanosis, pallor, or diaphoresis. EYES lids/conjunctiva normal. EARS/NOSE/THROAT Mucous membranes moist, nares normal, lips/teeth normal uvula midline without oral pharyngeal erythema, exudate or swelling TMs normal bilaterally. No lymphangitis/lymphedema. HEAD/NECK normocephalic atraumatic, no facial trauma, neck is supple. RESPIRATORY respiratory effort normal, speaks in full sentences, no tripod position, no accessory muscle use. Lungs clear to auscultation without rhonchi, wheezes, rales CARDIAC Regular rate and rhythm, no edema. ABDOMINAL Soft, ND/NT. No evidence of fluid wave. No pulsatile masses on exam, rebound tenderness, Braden sign or pain over Mcburney's point. MUSCLES/EXTREMITIES No abnormal range of motion, no swelling. SKIN Warm, pink and dry. No rashes, dermatoses, petechiae or lesions. NEUROLOGICAL Speech is clear and appropriate. Normal level of consciousness. Gait and coordination are normal. 5/5 strength in all extremities. PSYCH Normal mood and affect. Judgement/competence is appropriate Results & Data Results & Data Vital Signs (Past 12 Hours) Vital Signs Temp Pulse Resp BP Pulse Ox O2 Del Method 06/08/24 07:02 36.6 C 81 18 120/74 97 Room Air PG Care Time/CCT Total # of Minutes Spent Total Time Spent with Patient: Total time spent is greater than 50% in coordination of care (as documented) at patient's floor/unit and/or counseling patient: Coding Level of Care Code 02489 SUB INP/OBS CARE 2/35MIN Diagnoses Severe manic bipolar 1 disorder with psychotic behavior F31.2 Paranoid delusion F22 COVID-19 U07.1 History of asthma Z87.09
[2024-06-08] MEDS ORDERED: SODIUM CHLORIDE 0.65% NA SOLN 45 ML (OCEAN) PRN (12:20)
[2024-06-08] MEDS: SODIUM CHLORIDE 0.65% NA SOLN 45 ML (OCEAN) PRN (14:10)
--- NOTE | 2024-06-08 14:33 | Psychiatric Progress Note ---
Date of Service June 08, 2024 Impression / Recommendations Impression Marquis is a 24-year-old male, domiciled with roommates, [employer] 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 Patient is COVID-positive. Psychiatry consulted for evaluation and management. Presentation concerning for Bipolar 1 Annabella with psychosis vs Schizoaffective disorder, bipolar type vs substance induced psychosis, cannabis abuse. Presenting symptoms include decreased need for sleep, grandiosity, elevated mood, inc goal directed activity, high energy, delusions of grandeur, persecutory delusions, bizarre beliefs, paranoia. Appears to be his second episode, first in 2022. Likely triggered by traumas (GF in train accident, maternal grandmother). Possible family h/o Bipolar disorder in maternal grandfather. A: Patient's annabella is improving and did not present any new delusions today. Presents improved sleep, more logical plans, denial of paranoia, less grandiosity. Plan to decrease lorazepam to 1.5 mg at bedtime and to continue Abilify with plan to transition to long-acting injection Abilify maintain at 300 mg q. monthly. Today's hearing for his 303 involuntary commitment was approved. Spoke to patient's mother for collateral and provided updates. Overall, I spent a total of 75 minutes with this case including review of chart records, nursing report, review of lab work, direct evaluation of the patient at bedside, counseling the patient, discussion of the patient with the hospitalist provider, discussion with the psychiatric liaison during clinical rounds, orders, court hearing, collateral from family and documentation in the electronic health record. (1) Schizoaffective disorder, bipolar type: (2) Annabella: (3) Paranoid delusion: (4) Persecutory delusion: (5) Cannabis abuse: (6) of family member: (7) Unspecified mood [affective] disorder: (8) Acute psychosis: (9) COVID-19: (10) History of asthma: Plan - Currently on 303 involuntary commitment Continue bedside sitter given involuntary status Continue elopement precautions 06/08/2024: - Decrease Lorazepam to 1.5mg HS - Continue aripiprazole 15 mg at bedtime. 06/07/2024: Continue aripiprazole 15 mg at bedtime. Continue lorazepam 2 mg at bedtime. Labs: Vit D, Vit B12, HgbA1C, Fasting lipids 06/06/2024: Increase aripiprazole to 15 mg at bedtime. Continue lorazepam 2 mg at bedtime. 06/05/2024: -Abilify 10mg HS -Lorazepam 2mg HS -Lorazepam 1mg Q6H PRN for anxiety -Olanzapine 5mg ODT/IM Q6H PRN for agitation Interval History Identifying Information Marquis is a 24-year-old male, domiciled with roommates, [employer] 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 Patient is COVID-positive. Psychiatry consulted for evaluation and management. Chief Complaint "Good" Subjective Subjective Patient was seen & assessed and interval progress reviewed with treatment team nursing and social work The patient reports having dry sinuses and requesting nasal saline. Complains of congestion from recent illness. He reports coming out of hui that the risperidone is working. Was taking 3 mg at bedtime. He reports losing the medication because he lost his jacket and keep could not get into his car which had the medication. He reports future plans to gather fungal mycelia from her local area and combine them to help create organic materials for 3D printing. Reports his major is by [employer] and that this is related to his thesis. He feels safe currently and denies any paranoia. Reports sleeping well and reports fair energy. He views himself as "positive, articulate, happy, smart". Provided permission to contact his mother (HAN CHOUDHURY -[phone]): Talked to son every day. Definitely see an improvement. Less angry, less paranoia. Blaming psychosis on covid. Believes he should be out of hospital. Less focused on bizarre beliefs. Updated about care plan, diagnosis, prognosis. Physical Exam Mental Examination Appearance: Disheveled Eye Contact: Maintains Eye Contact Motor Behavior: Unremarkable Speech: Normal Mood: Happy Affect: Apprehensive and Calm Thought Process: Intact Thought Content: Obsessional Thoughts Hallucinations: None Insight: Poor Judgement: Poor (to limited, improved, adherent to treatment) Vital Signs (Past 24 Hours) Last Vital Signs Temp 36.6 C 06/08/24 07:02 Pulse 81 06/08/24 07:02 Resp 18 06/08/24 07:02 BP 120/74 06/08/24 07:02 Pulse Ox 97 06/08/24 07:02 O2 Del Method Room Air 06/08/24 07:02 Results & Data ([facility]) Laboratory Results Laboratory Results - last 24 hr 06/08/24 06:51 Estimat Average Glucose 94 Hemoglobin A1c 4.9 Triglycerides 124 Cholesterol 164 LDL Cholesterol, Calc 106 VLDL Cholesterol, Calc 25 HDL Cholesterol 33 Cholesterol/HDL Ratio 5.0 Vitamin B12 388 25-OH Vitamin D Total 27.8 L Current Inpatient Medications Current Inpatient Medications: Current Inpatient Medications Acetaminophen (Acetaminophen 325 Mg Tab) 650 mg PO Q4H PRN PRN Reason: pain/fever Stop: 07/05/24 09:55 Al Hydrox/Mg Hydrox/Simethicone (Aluminum/Magnesium Susp 30 Ml Udc) 30 ml PO Q6H PRN PRN Reason: Dyspepsia Stop: 07/05/24 09:55 Last Admin: 06/07/24 11:12 Dose: 30 ml Aripiprazole (Aripiprazole 15 Mg Tab) 15 mg PO HS [facility] Stop: 07/08/24 20:59 Enoxaparin Sodium (Enoxaparin Inj 40 Mg/0.4 Ml Syr) 40 mg SQ Q24H [facility] Stop: 07/05/24 09:55 Last Admin: 06/08/24 08:27 Dose: Not Given Guaifenesin (Guaifenesin 600 Mg Tabcr) 600 mg PO Q12 PRN PRN Reason: congestion Stop: 07/08/24 20:59 Ibuprofen (Ibuprofen 600 Mg Tab) 600 mg PO Q8H PRN PRN Reason: pain or fever Stop: 07/05/24 11:29 Lorazepam (Lorazepam 1 Mg Tab) 1 mg PO Q6H PRN PRN Reason: Anxiety Stop: 07/05/24 13:17 Lorazepam (Lorazepam 0.5 Mg Tab) 1.5 mg PO HS [facility] Stop: 07/08/24 20:59 Magnesium Hydroxide (Magnesium Hydroxide Susp 30 Ml Udc) 30 ml PO Q6H PRN PRN Reason: Constipation Stop: 07/05/24 09:55 Miscellaneous (Remove Nicoderm Patch) 1 each N/A DAILY@0859 [facility] Stop: 07/06/24 08:58 Last Admin: 06/08/24 08:28 Dose: Not Given Multivitamins (Multivitamin Tab) 1 tab PO DAILY [facility] Stop: 07/05/24 10:14 Last Admin: 06/08/24 08:29 Dose: 1 tab Nicotine Polacrilex (Nicotine Polacrilex 2 Mg Gum) 1 piece MT Q2H PRN PRN Reason: Nicotine cravings Stop: 07/05/24 21:16 Last Admin: 06/08/24 12:26 Dose: 1 piece Nicotine Polacrilex (Nicotine Polacrilex 2 Mg Gum) 1 piece MT Q2H PRN PRN Reason: Anxiety Stop: 07/07/24 16:26 Olanzapine (Olanzapine Zydis 5 Mg Orally Dis. Tab) 5 mg PO Q6H PRN PRN Reason: agitation Stop: 07/05/24 13:29 Olanzapine (Olanzapine 10 Mg/2.1 Ml Sdv) 5 mg IM Q6H PRN PRN Reason: agitation Stop: 07/05/24 13:29 Ondansetron HCl (Ondansetron Inj 2 Mg/Ml 2 Ml Vial) 4 mg IV Q6H PRN PRN Reason: Nausea Stop: 07/05/24 09:55 Polyethylene Glycol (Polyethylene (Miralax) 17 Gm Pack) 17 gm PO DAILY PRN PRN Reason: Constipation Stop: 07/05/24 09:55 Sodium Chloride (Sodium Chloride 0.65% Na Soln 45 Ml (Maury)) 2 sprays NA Q4 PRN PRN Reason: Dryness Stop: 07/08/24 12:19 Sodium Chloride (Sodium Chloride 0.65% Na Soln 45 Ml (Maury)) 2 sprays NA Q2H PRN PRN Reason: Dryness Stop: 07/08/24 13:34 Last Admin: 06/08/24 14:10 Dose: 2 sprays Vitamin D (Cholecalciferol 25 Mcg (1000 Units) Tab) 100 mcg PO DAILY [facility] Stop: 07/05/24 10:14 Last Admin: 06/08/24 08:29 Dose: 100 mcg
[2024-06-08] MEDS: guaiFENesin 600 MG TABCR PO PRN (15:39)
[2024-06-08] MEDS: LORazepam 0.5 MG TAB PO SCH (20:13)
[2024-06-08] MEDS: ARIPiprazole 15 MG TAB PO SCH (20:15)
[2024-06-08] MEDS ORDERED: ARIPiprazole 10 MG TAB PO SCH (21:00)
--- NOTE | 2024-06-09 12:57 | Hospitalist Progress Note ---
Date of Service June 09, 2024 Assessment & Plan (1) Severe manic bipolar 1 disorder with psychotic behavior: Plan: Appreciate psychiatry consultation-started on Abilify-titrating up as necessary Olanzapine p.o./IM as needed Psychiatry managing/coordinating his length of stay-on a 302 warrant and not allowed to leave the facility. Pt now 303 status (2) Paranoid delusion: Plan: Psychiatry consult appreciated with management as above-improving on Abilify Ordered to be on a one-to-one and is not allowed to leave the facility. Pt on 303 status (3) COVID-19: Plan: Keep on isolation as per hospital policy Continue ibuprofen as needed for pain or headache, fever. (4) History of asthma: Plan: no current symptoms, no wheezing, no hypoxemia Monitor with having active COVID-19 Plan DVT prophylaxis-Lovenox SQ given ongoing COVID-19 Disposition-continued stay medical/surgical unit on a one-to-one, COVID isolation room until either stable for discharge to home as per psychiatry or when okay with hospital infection control to be removed from COVID isolation- typically 7-day stay. Admission and Anticipated Discharge Date Admission Date: June 05, 2024 Subjective Pt is again in calm and in a pleasant mood. He states he slept well and there were no issues overnight. Review of Systems Review of Systems: CONST: Negative for fever, body aches and chills. HENT: Negative for neck pain/stiffness, headache, congestion, sore throat, swelling. EYES: Negative for discharge/pain or vision changes. RESP: Negative for cough/hemoptysis and shortness of breath. CV: Negative chest pain, difficulty breathing, palpitations. ABD: Negative pain, nausea, vomiting. : Negative increase frequency, dysuria, blood in urine or stool. MUSC: Negative for muscle aches, edema. SKIN: Negative rash, lesions/sores. NEURO: Negative headache, dizziness, weakness. Physical Exam Physical Exam: GENERAL APPEARANCE NAD, activity normal for age, well developed/ well nourished, no cyanosis, pallor, or diaphoresis. EYES lids/conjunctiva normal. EARS/NOSE/THROAT Mucous membranes moist, nares normal, lips/teeth normal uvula midline without oral pharyngeal erythema, exudate or swelling TMs normal bilaterally. No lymphangitis/lymphedema. HEAD/NECK normocephalic atraumatic, no facial trauma, neck is supple. RESPIRATORY respiratory effort normal, speaks in full sentences, no tripod position, no accessory muscle use. Lungs clear to auscultation without rhonchi, wheezes, rales CARDIAC Regular rate and rhythm, no edema. ABDOMINAL Soft, ND/NT. No evidence of fluid wave. No pulsatile masses on exam, rebound tenderness, Braden sign or pain over Mcburney's point. MUSCLES/EXTREMITIES No abnormal range of motion, no swelling. SKIN Warm, pink and dry. No rashes, dermatoses, petechiae or lesions. NEUROLOGICAL Speech is clear and appropriate. Normal level of consciousness. Gait and coordination are normal. 5/5 strength in all extremities. PSYCH Normal mood and affect. Judgement/competence is appropriate Results & Data Results & Data Vital Signs (Past 12 Hours) Vital Signs Temp Pulse Resp BP Pulse Ox O2 Del Method 06/09/24 07:24 36.6 C 84 16 121/75 97 Room Air PG Care Time/CCT Total # of Minutes Spent Total Time Spent with Patient: Total time spent is greater than 50% in coordination of care (as documented) at patient's floor/unit and/or counseling patient: Coding Level of Care Code 50271 SUB INP/OBS CARE 2/35MIN Diagnoses Severe manic bipolar 1 disorder with psychotic behavior F31.2 Paranoid delusion F22 COVID-19 U07.1 History of asthma Z87.09
--- NOTE | 2024-06-09 15:06 | Psychiatric Progress Note ---
Date of Service June 09, 2024 Impression / Recommendations Impression Marquis is a 24-year-old male, domiciled with roommates, [facility] [employer] 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 Patient is COVID-positive. Psychiatry consulted for evaluation and management. Presentation concerning for Bipolar 1 Annabella with psychosis vs Schizoaffective disorder, bipolar type vs substance induced psychosis, cannabis abuse. Presenting symptoms include decreased need for sleep, grandiosity, elevated mood, inc goal directed activity, high energy, delusions of grandeur, persecutory delusions, bizarre beliefs, paranoia. Appears to be his second episode, first in 2022. Likely triggered by traumas (GF in train accident, maternal grandmother). Possible family h/o Bipolar disorder in maternal grandfather. A: Annabella continues to improve, no evidence on evaluation mid-day, reportedly pacing and more psychomotor agitation in the morning but also frustrated by ongoing required isolation due to COVID. No evidence for delusions nor paranoia on evaluation today. Does minimize some of his previous statements as reported in the chart. Sleeping better. Consents to starting Abilify ARECHIGA and understands need for two week oral overlap with abilify po. Discussed risks, benefits and alternatives. Reviewed side effects including but not limited to: movement (TD, NMS), cardiac (QTc prolongation), and metabolic (stroke, insulin resistance) and necessity for fasting lipid and glucose labwork (reviewed previously done and stable) and AIMS done with score of 0. Overall, I spent a total of 60 minutes with this case including review of chart records, review of labwork, direct evaluation of the patient at bedside, counseling the patient, discussion of the patient with the hospitalist provider, discussion with the psychiatric liason during clinical rounds, review of collateral historian information from the family and documentation in the electronic health record. (1) Schizoaffective disorder, bipolar type: (2) Annabella: (3) Persecutory delusion: (4) Cannabis abuse: (5) of family member: (6) COVID-19: (7) History of asthma: Plan - Currently on 303 involuntary commitment Continue bedside sitter given involuntary status Continue elopement precautions 06/09/2024: -Abilify ARECHIGA 400mg IM today q30 days 06/08/2024: - Decrease Lorazepam to 1.5mg HS - Continue aripiprazole 15 mg at bedtime. 06/07/2024: Continue aripiprazole 15 mg at bedtime. Continue lorazepam 2 mg at bedtime. Labs: Vit D, Vit B12, HgbA1C, Fasting lipids 06/06/2024: Increase aripiprazole to 15 mg at bedtime. Continue lorazepam 2 mg at bedtime. 06/05/2024: -Abilify 10mg HS -Lorazepam 2mg HS -Lorazepam 1mg Q6H PRN for anxiety -Olanzapine 5mg ODT/IM Q6H PRN for agitation Interval History Identifying Information Marquis is a 24-year-old male, domiciled with roommates, [facility] 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 Patient is COVID-positive. Psychiatry consulted for evaluation and management. Chief Complaint "I'd like to get the injection today". Subjective Subjective Patient was seen & assessed and interval progress reviewed. Overnight events: -Pacing in his room this morning, demanding to leave, reported wanting to [facility] the hospital for wrongful holding Today he is seen with his mother also in the room. He asks that she remain during our visit. He feels his manic symptoms have resolved. His mother confirms that he is back to his baseline. He is lying in bed resting and no evidence for psychomotor agitation. He is hopeful to leave soon, feels very bored from being stuck in his room. He wonders about repeat COVID test as he feels maybe some of his symptoms are related to COVID psychosis. He denies any current symptoms of psychosis. He feels safe around his family and plans to be at home until after Thanksgiving. His mom has been in contact with [employer] student care and advocacy. He would like to get his Abilify ARECHIGA today, reflects that he feels he may have developed insomnia and subsequent annabella from not getting to take his risperidone after he locked it accidentally in his car and wants to prevent something like this from happening again in the future. Denies any side effects from po abilify. He is agreeable to working on a safety plan today. He has outpatient therapy (scheduled) and psych follow-up (not scheduled for next appointment yet). Physical Exam Psychiatric Orientation: alert and oriented x 3 Apperance: appropriately dressed and appropriately groomed Eye Contact: good eye contact Motor Behavior: no abnormal motor movements Speech: normal rate/rhythm/volume of speech Affect: euthymic affect Mood: no depressed mood, no anxious mood and no irritable mood Thought Process: goal directed thought process Thought Content: reality based without delusions Suicidal Thoughts: denies suicidal thoughts Homicidal Thoughts: denies homicidal thoughts Hallucinations: no auditory hallucinations and no visual hallucinations Insight: + fair insight Judgment: + fair judgement Vital Signs (Past 24 Hours) Last Vital Signs Temp 36.6 C 06/09/24 07:24 Pulse 84 06/09/24 07:24 Resp 16 06/09/24 07:24 BP 121/75 06/09/24 07:24 Pulse Ox 97 06/09/24 07:24 O2 Del Method Room Air 06/09/24 07:24 Results & Data ([facility]) Current Inpatient Medications Current Inpatient Medications: Current Inpatient Medications Acetaminophen (Acetaminophen 325 Mg Tab) 650 mg PO Q4H PRN PRN Reason: pain/fever Stop: 07/05/24 09:55 Al Hydrox/Mg Hydrox/Simethicone (Aluminum/Magnesium Susp 30 Ml Udc) 30 ml PO Q6H PRN PRN Reason: Dyspepsia Stop: 07/05/24 09:55 Last Admin: 06/09/24 14:54 Dose: 30 ml Aripiprazole (Aripiprazole 15 Mg Tab) 15 mg PO HS SHARIFA Stop: 07/08/24 20:59 Last Admin: 06/08/24 20:15 Dose: 15 mg Enoxaparin Sodium (Enoxaparin Inj 40 Mg/0.4 Ml Syr) 40 mg SQ Q24H SHARIFA Stop: 07/05/24 09:55 Last Admin: 06/09/24 08:43 Dose: Not Given Guaifenesin (Guaifenesin 600 Mg Tabcr) 600 mg PO Q12 PRN PRN Reason: congestion Stop: 07/08/24 20:59 Last Admin: 06/08/24 15:39 Dose: 600 mg Ibuprofen (Ibuprofen 600 Mg Tab) 600 mg PO Q8H PRN PRN Reason: pain or fever Stop: 07/05/24 11:29 Lorazepam (Lorazepam 1 Mg Tab) 1 mg PO Q6H PRN PRN Reason: Anxiety Stop: 07/05/24 13:17 Lorazepam (Lorazepam 0.5 Mg Tab) 1.5 mg PO HS SHARIFA Stop: 07/08/24 20:59 Last Admin: 06/08/24 20:13 Dose: 1.5 mg Magnesium Hydroxide (Magnesium Hydroxide Susp 30 Ml Udc) 30 ml PO Q6H PRN PRN Reason: Constipation Stop: 07/05/24 09:55 Miscellaneous (Remove Nicoderm Patch) 1 each N/A DAILY@[facility] Stop: 07/06/24 08:58 Last Admin: 06/09/24 07:26 Dose: Not Given Multivitamins (Multivitamin Tab) 1 tab PO DAILY SHARIFA Stop: 07/05/24 10:14 Last Admin: 06/09/24 07:27 Dose: 1 tab Nicotine Polacrilex (Nicotine Polacrilex 2 Mg Gum) 1 piece MT Q2H PRN PRN Reason: Nicotine cravings Stop: 07/05/24 21:16 Last Admin: 06/09/24 12:05 Dose: 1 piece Nicotine Polacrilex (Nicotine Polacrilex 2 Mg Gum) 1 piece MT Q2H PRN PRN Reason: Anxiety Stop: 07/07/24 16:26 Olanzapine (Olanzapine Zydis 5 Mg Orally Dis. Tab) 5 mg PO Q6H PRN PRN Reason: agitation Stop: 07/05/24 13:29 Olanzapine (Olanzapine 10 Mg/2.1 Ml Sdv) 5 mg IM Q6H PRN PRN Reason: agitation Stop: 07/05/24 13:29 Ondansetron HCl (Ondansetron Inj 2 Mg/Ml 2 Ml Vial) 4 mg IV Q6H PRN PRN Reason: Nausea Stop: 07/05/24 09:55 Polyethylene Glycol (Polyethylene (Miralax) 17 Gm Pack) 17 gm PO DAILY PRN PRN Reason: Constipation Stop: 07/05/24 09:55 Sodium Chloride (Sodium Chloride 0.65% Na Soln 45 Ml ([place])) 2 sprays NA Q4 PRN PRN Reason: Dryness Stop: 07/08/24 12:19 Sodium Chloride (Sodium Chloride 0.65% Na Soln 45 Ml ([place])) 2 sprays NA Q2H PRN PRN Reason: Dryness Stop: 07/08/24 13:34 Last Admin: 06/08/24 14:10 Dose: 2 sprays Vitamin D (Cholecalciferol 25 Mcg (1000 Units) Tab) 100 mcg PO DAILY SHARIFA Stop: 07/05/24 10:14 Last Admin: 06/09/24 07:27 Dose: 100 mcg
[2024-06-09] MEDS ORDERED: ARIPiprazole 400 MG PRE-FILLED SYRINGE IM SCH (15:15)
[2024-06-09] MEDS: ARIPiprazole 400 MG PRE-FILLED SYRINGE IM SCH (16:16)
[2024-06-10 06:52] VITALS: BP 115/76; PULSE 85; RESP 16; TEMP 97.7; O2SAT 96
--- NOTE | 2024-06-10 11:15 | Hospitalist Progress Note ---
Date of Service June 10, 2024 Assessment & Plan (1) Severe manic bipolar 1 disorder with psychotic behavior: Plan: Appreciate psychiatry consultation-started on Abilify-titrating up as necessary Olanzapine p.o./IM as needed Psychiatry managing/coordinating his length of stay-on a 302 warrant and not allowed to leave the facility. Pt now 303 status pt had Abilify injection yesterday (2) Paranoid delusion: Plan: Psychiatry consult appreciated with management as above-improving on Abilify Ordered to be on a one-to-one and is not allowed to leave the facility. Pt on 303 status (3) COVID-19: Plan: Keep on isolation as per hospital policy Continue ibuprofen as needed for pain or headache, fever. (4) History of asthma: Plan: no current symptoms, no wheezing, no hypoxemia Monitor with having active COVID-19 Plan DVT prophylaxis-Lovenox SQ given ongoing COVID-19 Disposition-plan for patient to be discharged home with mother once arrangement have been made. Admission and Anticipated Discharge Date Admission Date: June 05, 2024 Subjective Pt is again in calm and in a pleasant mood. He states he slept well and there were no issues overnight. Review of Systems Review of Systems: CONST: Negative for fever, body aches and chills. HENT: Negative for neck pain/stiffness, headache, congestion, sore throat, swelling. EYES: Negative for discharge/pain or vision changes. RESP: Negative for cough/hemoptysis and shortness of breath. CV: Negative chest pain, difficulty breathing, palpitations. ABD: Negative pain, nausea, vomiting. : Negative increase frequency, dysuria, blood in urine or stool. MUSC: Negative for muscle aches, edema. SKIN: Negative rash, lesions/sores. NEURO: Negative headache, dizziness, weakness. Physical Exam Physical Exam: GENERAL APPEARANCE NAD, activity normal for age, well developed/ well nourished, no cyanosis, pallor, or diaphoresis. EYES lids/conjunctiva normal. EARS/NOSE/THROAT Mucous membranes moist, nares normal, lips/teeth normal uvula midline without oral pharyngeal erythema, exudate or swelling TMs normal bilaterally. No lymphangitis/lymphedema. HEAD/NECK normocephalic atraumatic, no facial trauma, neck is supple. RESPIRATORY respiratory effort normal, speaks in full sentences, no tripod position, no accessory muscle use. Lungs clear to auscultation without rhonchi, wheezes, rales CARDIAC Regular rate and rhythm, no edema. ABDOMINAL Soft, ND/NT. No evidence of fluid wave. No pulsatile masses on exam, rebound tenderness, Braden sign or pain over Mcburney's point. MUSCLES/EXTREMITIES No abnormal range of motion, no swelling. SKIN Warm, pink and dry. No rashes, dermatoses, petechiae or lesions. NEUROLOGICAL Speech is clear and appropriate. Normal level of consciousness. Gait and coordination are normal. 5/5 strength in all extremities. PSYCH Normal mood and affect. Judgement/competence is appropriate Results & Data Results & Data Vital Signs (Past 12 Hours) Vital Signs Temp Pulse Resp BP Pulse Ox O2 Del Method 06/10/24 06:50 36.5 C 85 16 115/76 96 Room Air PG Care Time/CCT Total # of Minutes Spent Total Time Spent with Patient: Total time spent is greater than 50% in coordination of care (as documented) at patient's floor/unit and/or counseling patient: Coding Level of Care Code 21090 SUB INP/OBS CARE 2/35MIN Diagnoses Severe manic bipolar 1 disorder with psychotic behavior F31.2 Paranoid delusion F22 COVID-19 U07.1 History of asthma Z87.09
--- NOTE | 2024-06-10 11:52 | Psychiatric Progress Note ---
Date of Service June 10, 2024 Impression / Recommendations Impression Marquis is a 24-year-old male, domiciled with roommates, [employer] 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 Patient is COVID-positive. Psychiatry consulted for evaluation and management. Presentation concerning for Bipolar 1 Annabella with psychosis vs Schizoaffective disorder, bipolar type vs substance induced psychosis, cannabis abuse. Presenting symptoms include decreased need for sleep, grandiosity, elevated mood, inc goal directed activity, high energy, delusions of grandeur, persecutory delusions, bizarre beliefs, paranoia. Appears to be his second episode, first in 2022. Likely triggered by traumas (GF in train accident, maternal grandmother). Possible family h/o Bipolar disorder in maternal grandfather. 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 Reviewed importance of utilizing ativan to help with sleep and to contact his outpatient providers or seek emergency care if sleep starts to worsen or dips below 6 hours per night as this would significantly increase the risk for re-emergence of annabella. He understands importance of abilify oral overlap. Completed and reviewed safety plan. Today voices readiness for discharge. He notes stabilization in mood. He denies thoughts of harm to self or others. Thoughts are organized and they are clinically improved from admission. There is no evidence of psychosis. He improved in the hospital with support and medication adjustments. He aggrees to take medications as prescribed and keep follow-up appointments. At the time of the discharge he is deemed to be stable and appropriate for outpatient level of care. He is not deemed to be at imminent risk of harm to self or others. He is aware of emergency and crisis services. Knows to call 911 or go to nearest emergency care center if in a crisis which cannot be handled as an outpatient. Suicide risk assessment: Acute risk is low given improvement in mood and denial of SI, lack of access to lethal means, improvement in sleep and improvement in psychosis. Chronic risk is moderate given some non-modifiable risk factors: psychiatric co-morbid diagnoses, periods of impulsivity, prior psychiatric hospitalizations, mood disorder, but also with protective factors including student, good social support, sense of responsibility to family and social supports, outpatient care in place, positive coping skills, positive problem solving, self-observation. Counseled on ways to reduce acute and chronic risk including engaging with outpatient providers, using safety plan if needed, utilizing supports, taking medication, and using coping skills. Modifiable risk factors of annabella, psychosis, insomnia were addressed during hospitalization through development of new coping skills, safety planning, and medication adjustments. Overall, I spent a total of 60 minutes with this case including review of chart records, review of labwork, direct evaluation of the patient at bedside, counseling the patient, discussion of the patient with the hospitalist provider, discussion with the psychiatric liason during clinical rounds, review of collateral historian information from the family and documentation in the electronic health record. 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 [employer], return to school letter provided -He completed a safety plan -Anticipatory guidance reviewed with his mother by psych liason, she feels safe having him return home -Reviewed crisis information and he understands to go to the closest ED if he felt unsafe or symptoms worsen -Scripts sent for: * Abilify 15mg HS po for oral overlap for 13 more days * Lorazepam 1.5mg HS to ensure ongoing sleep promotion/resolution of annabella -Will be due for Abilify Maintena ARECHIGA 400mg IM on ~07/06/2024 (Initial Abilify Maintena ARECHIGA given on 06/09/2024) 06/09/2024: -Abilify ARECHIGA 400mg IM today q30 days 06/08/2024: - Decrease Lorazepam to 1.5mg HS - Continue aripiprazole 15 mg at bedtime. 06/07/2024: Continue aripiprazole 15 mg at bedtime. Continue lorazepam 2 mg at bedtime. Labs: Vit D, Vit B12, HgbA1C, Fasting lipids 06/06/2024: Increase aripiprazole to 15 mg at bedtime. Continue lorazepam 2 mg at bedtime. 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 Patient is COVID-positive. Psychiatry consulted for evaluation and management. Chief Complaint "I'm excited to go home". Subjective Subjective Patient was seen & assessed and interval progress reviewed. Received Abilify ARECHIGA yesterday and tolerated this well, denies any side effects from this. Asks appropriate questions about getting the injection in alternating arms moving forward. Reports he slept well but woke at 4:30am and has been up since which he cites as due to dry air in his room (always uses a humidifier at home year round) and sinus congestion. This was consistent with nursing documentation of 7 hours of sleep overnight. No evidence of hyperactivity, remains seated during our interview. No delusions nor paranoia nor grandiosity. Future focused today, asks appropriate questions, able to discuss his medications and recalls these from memory. Looking forward to upcoming holidays. Completed discharge ELZA for his psychiatric provider. No safety concerns, he is hopeful to discharge home with his mom today. Physical Exam Psychiatric Orientation: alert and oriented x 3 Apperance: appropriately dressed and appropriately groomed Eye Contact: good eye contact Motor Behavior: no abnormal motor movements Speech: normal rate/rhythm/volume of speech Affect: euthymic affect Mood: no depressed mood, no anxious mood and no irritable mood Thought Process: goal directed thought process Thought Content: reality based without delusions Suicidal Thoughts: denies suicidal thoughts Homicidal Thoughts: denies homicidal thoughts Hallucinations: no auditory hallucinations and no visual hallucinations Insight: + fair insight Judgment: + fair judgement Vital Signs (Past 24 Hours) Last Vital Signs Temp 36.5 C 06/10/24 06:50 Pulse 85 06/10/24 06:50 Resp 16 06/10/24 06:50 BP 115/76 06/10/24 06:50 Pulse Ox 96 06/10/24 06:50 O2 Del Method Room Air 06/10/24 06:50 Results & Data ([facility]) Current Inpatient Medications Current Inpatient Medications: Current Inpatient Medications Acetaminophen (Acetaminophen 325 Mg Tab) 650 mg PO Q4H PRN PRN Reason: pain/fever Stop: 07/05/24 09:55 Al Hydrox/Mg Hydrox/Simethicone (Aluminum/Magnesium Susp 30 Ml Udc) 30 ml PO Q6H PRN PRN Reason: Dyspepsia Stop: 07/05/24 09:55 Last Admin: 06/09/24 14:54 Dose: 30 ml Aripiprazole (Aripiprazole 15 Mg Tab) 15 mg PO HS [facility] Stop: 07/08/24 20:59 Last Admin: 06/09/24 20:02 Dose: 15 mg Enoxaparin Sodium (Enoxaparin Inj 40 Mg/0.4 Ml Syr) 40 mg SQ Q24H SHARIFA Stop: 07/05/24 09:55 Last Admin: 06/10/24 08:38 Dose: Not Given Guaifenesin (Guaifenesin 600 Mg Tabcr) 600 mg PO Q12 PRN PRN Reason: congestion Stop: 07/08/24 20:59 Last Admin: 06/08/24 15:39 Dose: 600 mg Ibuprofen (Ibuprofen 600 Mg Tab) 600 mg PO Q8H PRN PRN Reason: pain or fever Stop: 07/05/24 11:29 Lorazepam (Lorazepam 1 Mg Tab) 1 mg PO Q6H PRN PRN Reason: Anxiety Stop: 07/05/24 13:17 Lorazepam (Lorazepam 0.5 Mg Tab) 1.5 mg PO [facility] Stop: 07/08/24 20:59 Last Admin: 06/09/24 20:07 Dose: 1.5 mg Magnesium Hydroxide (Magnesium Hydroxide Susp 30 Ml Udc) 30 ml PO Q6H PRN PRN Reason: Constipation Stop: 07/05/24 09:55 Miscellaneous (Remove Nicoderm Patch) 1 each N/A DAILY@0859 [facility] Stop: 07/06/24 08:58 Last Admin: 06/10/24 08:38 Dose: Not Given Multivitamins (Multivitamin Tab) 1 tab PO DAILY [facility] Stop: 07/05/24 10:14 Last Admin: 06/10/24 08:39 Dose: 1 tab Nicotine Polacrilex (Nicotine Polacrilex 2 Mg Gum) 1 piece MT Q2H PRN PRN Reason: Nicotine cravings Stop: 07/05/24 21:16 Last Admin: 06/10/24 10:35 Dose: 1 piece Nicotine Polacrilex (Nicotine Polacrilex 2 Mg Gum) 1 piece MT Q2H PRN PRN Reason: Anxiety Stop: 07/07/24 16:26 Olanzapine (Olanzapine Zydis 5 Mg Orally Dis. Tab) 5 mg PO Q6H PRN PRN Reason: agitation Stop: 07/05/24 13:29 Olanzapine (Olanzapine 10 Mg/2.1 Ml Sdv) 5 mg IM Q6H PRN PRN Reason: agitation Stop: 07/05/24 13:29 Ondansetron HCl (Ondansetron Inj 2 Mg/Ml 2 Ml Vial) 4 mg IV Q6H PRN PRN Reason: Nausea Stop: 07/05/24 09:55 Polyethylene Glycol (Polyethylene (Miralax) 17 Gm Pack) 17 gm PO DAILY PRN PRN Reason: Constipation Stop: 07/05/24 09:55 Sodium Chloride (Sodium Chloride 0.65% Na Soln 45 Ml ([place])) 2 sprays NA Q4 PRN PRN Reason: Dryness Stop: 07/08/24 12:19 Sodium Chloride (Sodium Chloride 0.65% Na Soln 45 Ml ([place])) 2 sprays NA Q2H PRN PRN Reason: Dryness Stop: 07/08/24 13:34 Last Admin: 06/08/24 14:10 Dose: 2 sprays Vitamin D (Cholecalciferol 25 Mcg (1000 Units) Tab) 100 mcg PO DAILY SHARIFA Stop: 07/05/24 10:14 Last Admin: 06/10/24 08:39 Dose: 100 mcg [facility] & Subst Abuse Tx Psychiatrist Name of Psychiatrist: Sapna Body Micah - Dr. Velasco Psychiatrist's Date Of Appointment With Psychiatric Provider: 06/18/24 Time of Appointment with Psychiatrist: 10:30AM Psychiatric Appointment Comment: Please call to confirm appointment! May have been cancelled. Therapist Name of Therapist: Sapna Body Micah Travis Therapist's Date of Therapist Appointment: 06/13/24 Time of Therapist Appointment: 11:00AM Post Discharge Appointments Other #1: Name of Aftercare Appointment: Student Care and Advocacy Phone Number of Aftercare Appointment: Aftercare Appointment Comment: Please reach out upon discharge to schedule post-hospitalization follow up
--- NOTE | 2024-06-10 12:16 | Discharge Summary ---
Discharge Summary Date of Service June 10, 2024 Principal Dx & Hospital Course #1 = Principal Diagnosis (1) Severe manic bipolar 1 disorder with psychotic behavior: Appreciate psychiatry consultation-started on Abilify-titrating up as necessary Olanzapine p.o./IM as needed Psychiatry managing/coordinating his length of stay-on a 302 warrant and not allowed to leave the facility. Pt now 303 status pt had Abilify injection yesterday (2) Paranoid delusion: Psychiatry consult appreciated with management as above-improving on Abilify Ordered to be on a one-to-one and is not allowed to leave the facility. Pt on 303 status (3) COVID-19: Keep on isolation as per hospital policy Continue ibuprofen as needed for pain or headache, fever. (4) History of asthma: no current symptoms, no wheezing, no hypoxemia Monitor with having active COVID-19 Plan DVT prophylaxis-Lovenox SQ given ongoing COVID-19 Disposition-plan for patient to be discharged home with mother once arrangement have been made. Admission HPI Per Admitting Provider This patient is a 24-year-old male with history of paranoid schizophrenia, nicotine dependence, and marijuana use disorder who presents to the ER in the custody of the police with psychosis. He is a student at [employer] and drove home to his parents' house yesterday, thought they bugged his car, drove it at excessive speeds back to [employer] to the police station where he asked him to inspect his car for listening devices. He then went to the student [employer] building on campus and stole all of the toilet paper from the environmental services employees and was creating a rope and then was found splashing toilet bowl cotton cleaner all over the floor. He thought he was going to "climb a tree to [place]," apparently. He also recently superglued charcoal to his forehead because he wanted to feel burning in his eyes as if he were in a gas chamber. He does focus a lot on water and food being tainted with fungus and chemicals, yet laughs when I remind him that smoking is very bad for his health. He was just discharged from the [facility] about a week ago and says he was placed on Risperdal, but wants to talk about reducing the dose to half. He denies SI/HI, but does report feeling depressed and says "I feel the depression in my body." In the ER, he was found to be COVID-19 positive, with fairly normal vital signs. He had a mild leukocytosis of 13. He was not hypoxemic and reports he had some chills at home and a mild cough, some mild nausea but no vomiting, but otherwise feels fine. He requested Ativan and nicotine in the ER which was given to him. He was placed on a 302 warrant by the ER physician and will be admitted to the medical service due to being COVID-19 positive. I discussed his care with the psychiatric nurse liaison prior to admission. Discharge Exam GENERAL APPEARANCE NAD, activity normal for age, well developed/ well nourished, no cyanosis, pallor, or diaphoresis. EYES lids/conjunctiva normal. EARS/NOSE/THROAT Mucous membranes moist, nares normal, lips/teeth normal uvula midline without oral pharyngeal erythema, exudate or swelling TMs normal bilaterally. No lymphangitis/lymphedema. HEAD/NECK normocephalic atraumatic, no facial trauma, neck is supple. RESPIRATORY respiratory effort normal, speaks in full sentences, no tripod position, no accessory muscle use. Lungs clear to auscultation without rhonchi, wheezes, rales CARDIAC Regular rate and rhythm, no edema. ABDOMINAL Soft, ND/NT. No evidence of fluid wave. No pulsatile masses on exam, rebound tenderness, Braden sign or pain over Mcburney's point. MUSCLES/EXTREMITIES No abnormal range of motion, no swelling. SKIN Warm, pink and dry. No rashes, dermatoses, petechiae or lesions. NEUROLOGICAL Speech is clear and appropriate. Normal level of consciousness. Gait and coordination are normal. 5/5 strength in all extremities. PSYCH Normal mood and affect. Judgement/competence is appropriate Discharge Plan Discharge Items Patient Disposition: Home - Self-Care Reason For Visit: PSYCHOSIS, COVID-19 Discharge Diagnosis: pyschosis, COVID-19 Activity: Resume your previous activity Non-emergency contact: Primary Care Provider Call non-emergency contact if: you have any medication questions and your symptoms worsen Follow-up/Referrals: Willam Khan DO [Primary Care Provider] - Diet: Regular Addtl Attending Provider Instructions: SPECIAL CARE INSTRUCTIONS: 1. Follow through with your scheduled aftercare appointments. If unable to keep an appointment, please call to reschedule. 2. Take your medication only as prescribed. Medication should not be changed or stopped without the approval of your doctor. In the event of worsening symptoms or concerns about side effects, contact your doctor immediately. 3. Journal feelings and process them with a support person. Identify stressors or situations that may result in relapse, deterioration or inappropriate behaviors and develop a plan to deal with those issues. 4. If your coping skills are ineffective and you are in crisis, contact your outpatient providers for direction. If unable to reach your providers, please call the [facility] CRISIS LINE AT , go to the [facility] walk-in center at [address], [address], [place], or go to the closest Emergency Room. 5. Avoid alcohol and un-prescribed drugs. 6. Your condition is stable for discharge to outpatient level of care, but recovery is an ongoing process. Ifthoughts to harm yourself or others return, follow the safety plan developed during your stay. Planning for a safe return home includes securing weapons. Our treatment team recommends weaponsbe removed from the home until your outpatient provider reassesses your progress. In rare cases where the items themselvescannot be removed, guns and ammunitionshould be secured separatelyand keys stored by a reliable personoutside of the home. If you were admitted on an involuntary commitment, the police or other legal authorities may be involved in this process. AFTERCARE APPOINTMENTS: * Please call your insurance company prior to your scheduled appointment to confirm your aftercare providers are covered. Take your insurance information to your appointments. WHO TO CALL AND WHEN: Medical Emergencies: For questions or emergencies related to your hospital stay, please contact the Inpatient Behavioral Health Unit at [phone]. A coach tour driver is on-call 21/02 for the Behavioral Health Unit for emergencies At any time you feel your situation is an emergency, you may also call 911 immediately. National Crisis Hotline: 988 Pending Studies at Discharge: No Stand-Alone Forms: My [facility], Smoking Cessation Medications and DC Order Prescriptions: New lorazepam 0.5 mg Tablet 1.5 mg PO HS 30 Days Qty: 90 0RF aripiprazole [Abilify] 15 mg Tablet 15 mg PO HS 13 Days Qty: 13 0RF Continued multivitamin Tablet 1 tab PO DAILY omega-3 fatty acids Capsule 1 cap PO DAILY cholecalciferol (vitamin D3) [Vitamin D3] 50 mcg (2,000 unit) Capsule 100 mcg PO DAILY Discontinued risperidone 3 mg Tablet 3 mg PO BID Discharge Orders: Discharge Order (Routine); Ordered 06/10/24 Ordered By: Axel Barone Admission Data Admit Date/Time: 06/05/24 07:28 Attending Provider: Axel Barone Admit Provider: Aileen Reynoso Primary Care Provider: Willam Khan Other Providers: Aileen Reynoso; Moncho Barrett Other Interventions: PSY Interdisciplinary Discharge Planning Last Done: 06/10/24 09:46 Hospital Stay Data Consultations 06/05/24 07:19 ED Decision to Admit Stat 06/05/24 07:24 Consult Psychiatry Routine Pending Results Patient Have Any Pending Studies at Discharge: No Discharge Instructions Given to Patient (Per Discharging Provider) SPECIAL CARE INSTRUCTIONS: 1. Follow through with your scheduled aftercare appointments. If unable to keep an appointment, please call to reschedule. 2. Take your medication only as prescribed. Medication should not be changed or stopped without the approval of your doctor. In the event of worsening symptoms or concerns about side effects, contact your doctor immediately. 3. Journal feelings and process them with a support person. Identify stressors or situations that may result in relapse, deterioration or inappropriate behaviors and develop a plan to deal with those issues. 4. If your coping skills are ineffective and you are in crisis, contact your tpatient providers for direction. If unable to reach your providers, please call the [facility] CRISIS LINE AT , go to the [facility] walk-in center at [address] [place] [address], [address], [place], or go to the closest Emergency Room. 5. Avoid alcohol and un-prescribed drugs. 6. Your condition is stable for discharge to outpatient level of care, but recovery is an ongoing process. Ifthoughts to harm yourself or others return, follow the safety plan developed during your stay. Planning for a safe return home includes securing weapons. Our treatment team recommends weaponsbe removed from the home until your outpatient provider reassesses your progress. In rare cases where the items themselvescannot be removed, guns and ammunitionshould be secured separatelyand keys stored by a reliable personoutside of the home. If you were admitted on an involuntary commitment, the police or other legal authorities may be involved in this process. AFTERCARE APPOINTMENTS: * Please call your insurance company prior to your scheduled appointment to confirm your aftercare providers are covered. Take your insurance information to your appointments. WHO TO CALL AND WHEN: Medical Emergencies: For questions or emergencies related to your hospital stay, please contact the Inpatient Behavioral Health Unit at [phone]. A coach tour driver is on-call 21/02 for the Behavioral Health Unit for emergencies At any time you feel your situation is an emergency, you may also call 911 immediately. National Crisis Hotline: 988 Total Time Total Time Spent Total Time Spent (In Minutes): 50 Coding Level of Care Code 56592 INP/OBS DISCH >30 MIN Diagnoses Severe manic bipolar 1 disorder with psychotic behavior F31.2 Paranoid delusion F22 COVID-19 U07.1 History of asthma Z87.09
== END 2024-06-10 13:50 | disposition home or self-care (01) | DRG 178 ==
LOC: SUATTDRO → ED 03:42 → 3E 07:28 → SUATTDRO 07:28 → INTOOBSV 07:28 → 3E 09:10